=== PATIENT | female | born 1995 ===

== ENCOUNTER → 2024-06-09 | Day surgery (SDC) | payer OTHER ==
[2024-06-04 14:12] LABS: INR 1.06; PARTIAL THROMBOPLASTIN TIME 29.2 SECONDS (22.0-34.0); PROTHROMBIN TIME 11.5 SECONDS (9.0-11.5)
[~2024-06-09] MED LIST: BUPIVACAINE HCL/PF 0.25% 30ML VIAL InF ONE; CEFTRIAXONE SODIUM 2,000 MG VIAL IV ONE; CELECOXIB200 MG PO; DIBUCAINE 15 GM OINT..GM. TUBE RECTAL SCH; HEMOSTATIC MATRIX 1 KIT KIT TOP ONE; INTESTINEX680 M1 PO; LIDOCAINE HCL 1%/EPINEPHRINE 20ML VIAL IJ ONE; METRONIDAZOLE/SODIUM CHLORIDE 500 MG/100 ML PIGGYBACK IV ONE; PERCOCET 5-3251 EACH PO; POVIDONE-IODINE 118 ML BOTT TOP ONE
== END | disposition home or self-care (01) ==
LOC: ADM 05-28 12:15 → CIR.AMB 07:19
PROVIDERS: ATTEND Surgery
DX: K60.1 Chronic anal fissure (principal)